=== PATIENT | female | born 1945 | race Caucasian/White ===

== ENCOUNTER 2022-01-28 08:14 | Inpatient (IN) | payer OTHER, MEDICAID ==
[~2022-01-28] VITALS: Ht 157.5 cm; Wt 68.2 kg
[2022-01-28 08:53] LABS: BASOPHILS % (AUTO) 0.5 % (0.0-2.0); EOSINOPHILS % (AUTO) 1.8 % (1.0-6.0); LYMPHOCYTES # (AUTO) 2.2 K/uL (1.0-4.8); LYMPHOCYTES % (AUTO) 33.1 % (22.0-44.0); MEAN CORPUSCULAR HEMOGLOBIN 30.1 pg (26.0-34.0); MEAN CORPUSCULAR HGB CONC 34.1 G/dL (31.0-37.0); MEAN CORPUSCULAR VOLUME 88 fL (80-100); MONOCYTES # (AUTO) 0.4 K/uL (0.1-1.0); MONOCYTES % (AUTO) 6.6 % (2.0-9.0); NEUTROPHILS # (AUTO) 3.9 K/uL (1.8-7.7); PLATELET COUNT (AUTO) 231 K/uL (150-450); RED BLOOD CELL COUNT(AUTO) 4.64 MIL/uL (4.00-5.20); RED CELL DISTRIBUTION WIDTH 13.2 % (11.5-14.5)
[2022-01-28] MEDS ORDERED: LABETALOL HCL 5 MG/ML 20 ML VIAL IVP ONE (09:00)
[2022-01-28 09:14] LABS: ANION GAP 9 mmol/L (8-16); CALCIUM, TOTAL 8.6 mg/dL (8.8-10.5); CARBON DIOXIDE 27 mmol/L (22-29); CHLORIDE 105 mmol/L (98-107); CREATININE 0.67 mg/dL (0.60-1.30); GLUCOSE,RANDOM 137 mg/dL (70-110); POTASSIUM 3.9 mmol/L (3.5-5.1); SODIUM SERUM 141 mmol/L (136-145); UREA NITROGEN, BLOOD 9 mg/dL (7-18)
[2022-01-28 09:15] LABS: GLOMERULAR FILTR. RATE CALC > 60 mL/min (>60); PROTHROMBIN TIME 10.5 SEC (9.4-11.6)
[2022-01-28 09:17] LABS: COVID AG,FIA SOURCE NASOPHARYNGEAL
[2022-01-28 09:19] LABS: APPEARANCE,URINE CLEAR (CLEAR); BILIRUBIN,URINE NEGATIVE (NEGATIVE); GLUCOSE, URINE (UA) NEGATIVE (NEGATIVE); KETONES,URINE NEGATIVE (NEGATIVE); LEUKOCYTE ESTERASE ,URINE NEGATIVE (NEGATIVE); NITRATE,URINE NEGATIVE (NEGATIVE); OCCULT BLOOD,URINE NEGATIVE (NEGATIVE); PROTEIN,URINE NEGATIVE (NEGATIVE); SPECIFIC GRAVITIY, URINE 1.016 (1.003-1.030); UROBILINOGEN,URINE <=1.0 mg/dL (<=1.0)
[2022-01-28 09:22] LABS: ALANINE AMINOTRANSFERASE 18 U/L (12-78); ALBUMIN 3.2 g/dL (3.4-5.0); ALKALINE PHOSPHATASE 120 U/L (46-116); ASPARTATE AMINOTRANSFERASE 15 U/L (15-37); BILIRUBIN,TOTAL 0.7 mg/dL (0.1-1.0); CREATINE KINASE, TOTAL ONLY 25 U/L (26-192); TOTAL PROTEIN, SERUM 6.3 g/dL (6.4-8.2)
[2022-01-28 09:26] LABS: AMPHET/METH SCREEN,URINE NEGATIVE (NEGATIVE); BARBITURATE SCREEN, URINE NEGATIVE (NEGATIVE); BENZODIAZEPINES SCREEN,URINE NEGATIVE (NEGATIVE); CANNABINOID SCREEN,URINE NEGATIVE (NEGATIVE); COCAINE SCREEN,URINE NEGATIVE (NEGATIVE); METHADONE SCREEN, URINE NEGATIVE (NEGATIVE); OPIATE SCREEN,URINE NEGATIVE (NEGATIVE)
[2022-01-28 09:27] LABS: PHENCYCLIDINE SCREEN,URINE NEGATIVE (NEGATIVE)
[2022-01-28 09:35] LABS: LACTIC ACID 1.3 mmol/L (0.4-2.0)
[2022-01-28 09:36] LABS: AMMONIA 18 umol/L (11-32)
[2022-01-28 10:13] LABS: B-TYPE NATRIURETIC PEPTIDE 53 pg/mL (0-100)
[2022-01-28] MEDS ORDERED: ONDANSETRON HCL 4 MG/2 ML VIAL IVP PRN (10:30)
[2022-01-28] MEDS ORDERED: ACETAMINOPHEN 325 MG TABLET PO PRN ×2 (10:30→12:30)
[2022-01-28] MEDS ORDERED: 0.9% SODIUM CHLORIDE 10 ML SYRINGE IVP PRN (10:30)
[2022-01-28] MEDS ORDERED: DEXTROSE 50%-WATER 25 GM/50 ML SYRINGE IVP PRN (12:30)
[2022-01-28] MEDS: LISINOPRIL 20 MG TABLET PO SCH (12:35)
[2022-01-28] MEDS: ASPIRIN 81 MG CHEWABLE TABLET PO SCH (12:35)
[2022-01-28] MEDS: HEPARIN SODIUM,PORCINE 5,000 UNITS/ML VIAL SQ SCH (15:11)
[2022-01-28 15:31] LABS: GLUCOSE,POINT OF CARE 102 MG/DL (70-110)
[2022-01-28 17:30] VITALS: BP 182/85
[2022-01-28 18:07] LABS: GLUCOMETER DEV NAME(LOC) 5N.1C; GLUCOSE,POINT OF CARE 123 MG/DL (70-110)
[2022-01-28 19:37] VITALS: BP 187/78
[2022-01-28] MEDS ORDERED: HydrALAZINE HCL 20 MG/ML VIAL IVP PRN (20:00)
[2022-01-28] MEDS: ONDANSETRON HCL 4 MG/2 ML VIAL IVP PRN (20:33)
[2022-01-28] MEDS: INSULIN LISPRO 100 UNITS/ML SQ PRN (20:36)
[2022-01-28] MEDS: DOCUSATE SODIUM 100 MG CAPSULE PO SCH (20:43)
[2022-01-29 00:09] VITALS: BP 126/70
[2022-01-29 06:19] LABS: ALBUMIN 3.2 g/dL (3.4-5.0); ALKALINE PHOSPHATASE 122 U/L (46-116); ANION GAP 10 mmol/L (8-16); ASPARTATE AMINOTRANSFERASE 14 U/L (15-37); BILIRUBIN,TOTAL 0.7 mg/dL (0.1-1.0); CALCIUM, TOTAL 9.2 mg/dL (8.8-10.5); CARBON DIOXIDE 28 mmol/L (22-29); CHLORIDE 103 mmol/L (98-107); CREATININE 0.62 mg/dL (0.60-1.30); GLUCOSE,RANDOM 102 mg/dL (70-110); SODIUM SERUM 141 mmol/L (136-145); TOTAL PROTEIN, SERUM 6.6 g/dL (6.4-8.2); UREA NITROGEN, BLOOD 9 mg/dL (7-18)
[2022-01-29 06:22] LABS: BASOPHILS % (AUTO) 0.4 % (0.0-2.0); EOSINOPHILS % (AUTO) 0.8 % (1.0-6.0); HEMATOCRIT 44.2 % (36-46); HEMOGLOBIN 14.9 g/dL (12.0-16.0); LYMPHOCYTES # (AUTO) 2.1 K/uL (1.0-4.8); MEAN CORPUSCULAR HEMOGLOBIN 29.7 pg (26.0-34.0); MEAN CORPUSCULAR HGB CONC 33.8 G/dL (31.0-37.0); MEAN CORPUSCULAR VOLUME 88 fL (80-100); MONOCYTES # (AUTO) 0.5 K/uL (0.1-1.0); MONOCYTES % (AUTO) 6.1 % (2.0-9.0); NEUTROPHILS # (AUTO) 4.8 K/uL (1.8-7.7); NEUTROPHILS % (AUTO) 64.7 % (40.0-70.0); PLATELET COUNT (AUTO) 236 K/uL (150-450); RED BLOOD CELL COUNT(AUTO) 5.02 MIL/uL (4.00-5.20); RED CELL DISTRIBUTION WIDTH 13.5 % (11.5-14.5)
[2022-01-29 06:30] LABS: ALANINE AMINOTRANSFERASE 21 U/L (12-78)
[2022-01-29 06:33] LABS: GLOMERULAR FILTR. RATE CALC > 60 mL/min (>60)
[2022-01-29 07:40] VITALS: BP 123/60
[2022-01-29] MEDS: HEPARIN SODIUM,PORCINE 5,000 UNITS/ML VIAL SQ SCH ×3 (07:56→16:47)
[2022-01-29] MEDS: ASPIRIN 81 MG CHEWABLE TABLET PO SCH (08:02)
[2022-01-29] MEDS: DOCUSATE SODIUM 100 MG CAPSULE PO SCH ×2 (08:02→20:06)
[2022-01-29] MEDS: LISINOPRIL 20 MG TABLET PO SCH (08:02)
[2022-01-29] MEDS: FAMOTIDINE 20 MG TABLET PO SCH (08:03)
[2022-01-29 08:48] LABS: GLUCOMETER DEV NAME(LOC) 5S.2B; GLUCOSE,POINT OF CARE 149 MG/DL (70-110)
[2022-01-29 11:03] VITALS: BP 130/72
[2022-01-29] MEDS: INSULIN LISPRO 100 UNITS/ML SQ PRN (12:03)
[2022-01-29 12:34] LABS: THYROID STIMULATING HORMONE 1.22 uIU/mL (0.36-3.74)
[2022-01-29 15:39] VITALS: BP 156/82
[2022-01-29 18:31] LABS: GLUCOMETER DEV NAME(LOC) 5N.1C; GLUCOSE,POINT OF CARE 149 MG/DL (70-110)
[2022-01-29 19:51] VITALS: BP 134/76
[2022-01-29 20:01] LABS: GLUCOMETER DEV NAME(LOC) 5S.2B; GLUCOSE,POINT OF CARE 181 MG/DL (70-110)
[2022-01-29] MEDS: ONDANSETRON HCL 4 MG/2 ML VIAL IVP PRN (20:02)
[2022-01-29 23:47] VITALS: BP 133/61
[2022-01-30] MEDS: HEPARIN SODIUM,PORCINE 5,000 UNITS/ML VIAL SQ SCH ×2 (00:40→10:12)
[2022-01-30 04:26] VITALS: BP 132/68
[2022-01-30 07:11] LABS: GLUCOMETER DEV NAME(LOC) 5S.2B; GLUCOSE,POINT OF CARE 117 MG/DL (70-110)
[2022-01-30 07:54] VITALS: BP 145/64
[2022-01-30] MEDS: ASPIRIN 81 MG CHEWABLE TABLET PO SCH (10:09)
[2022-01-30] MEDS: FAMOTIDINE 20 MG TABLET PO SCH (10:11)
[2022-01-30] MEDS: DOCUSATE SODIUM 100 MG CAPSULE PO SCH (10:11)
[2022-01-30] MEDS: LISINOPRIL 20 MG TABLET PO SCH (10:12)
[2022-01-30 11:00] VITALS: BP 140/77
[2022-01-30 13:16] LABS: GLUCOMETER DEV NAME(LOC) 5S.2B; GLUCOSE,POINT OF CARE 135 MG/DL (70-110)
[2022-01-30] MEDS ORDERED: ATOR40TA28 PO (14:27)
[2022-01-30] MEDS ORDERED: ASPI-1450 PO (14:27)
[2022-01-30] MEDS ORDERED: BRIM5DRO21 OU (14:27)
[2022-01-30] MEDS ORDERED: CYAN100T45 PO (14:34)
[2022-01-30] MEDS ORDERED: BRIN10DR3 OU (14:34)
[2022-01-30] MEDS ORDERED: VENL-67 PO (14:34)
[2022-01-30] MEDS ORDERED: CILO100T PO (14:34)
[2022-01-30] MEDS ORDERED: GABA-1216 PO (14:35)
[2022-01-30] MEDS ORDERED: PYRI25TA4 PO (14:41)
[2022-01-30] MEDS ORDERED: INSU100V SQ (14:41)
[2022-01-30] MEDS ORDERED: XALA2.5OS OU (14:41)
[2022-01-30] MEDS ORDERED: INSU100V12 SQ (14:41)
[2022-01-30] MEDS ORDERED: METO25XL PO (14:41)
[2022-01-30] MEDS ORDERED: LOSA-381 PO (14:41)
[2022-01-30 14:58] VITALS: BP 129/79
[2022-01-31 04:22] LABS: GLUCOMETER DEV NAME(LOC) 5N.1C; GLUCOSE,POINT OF CARE 127 MG/DL (70-110)
[2022-01-31 18:06] LABS: GLUCOMETER DEV NAME(LOC) 5N.3; GLUCOSE,POINT OF CARE 79 MG/DL (70-110)
== END 2022-01-30 19:15 | disposition home or self-care (01) | DRG 312 ==
LOC: EMS 08:16 → 5S 16:32
PROVIDERS: ADMIT Internal Medicine; ATTEND Internal Medicine
DX: R55 Syncope and collapse (principal); E11.40 Type 2 diabetes mellitus with diabetic neuropathy, unspecified; I10 Essential (primary) hypertension; Z83.3 Family history of diabetes mellitus; Z79.899 Other long term (current) drug therapy; Z88.8 Allergy status to other drugs, medicaments and biological substances; Z90.49 Acquired absence of other specified parts of digestive tract
CPT/HCPCS: 70450; 71045; 80053; 81003; 82140; 82550; 82962; 83605; 83880; 84443; 84484; 85025; 85610; 85730; 93005; 97110; 97116; 97163; 99285; G0480; J0360; J1644; J2405; J3490; 36415-L1; 36415-TC